=== PATIENT | male | born 1980 | race Caucasian/White ===

== ENCOUNTER 2022-10-20 11:05 | Emergency (ER) | payer MEDICAID ==
[~2022-10-20] VITALS: Ht 182.9 cm; Wt 77.1 kg
[2022-10-20 11:11] VITALS: BP_SYST 124
[2022-10-20 11:15] VITALS: BP_SYST 124
[2022-10-20] MEDS ORDERED: BUPRENORPHINE HCL/NALOXONE HCL 2-0.5 MG 1 EACH TAB.SUBL SL ONE (12:15)
== END 2022-10-20 12:30 ==
LOC: SED 11:05
DX: F11.23 Opioid dependence with withdrawal (principal); F41.9 Anxiety disorder, unspecified; R11.10 Vomiting, unspecified; F17.200 Nicotine dependence, unspecified, uncomplicated; Z88.1 Allergy status to other antibiotic agents; Z79.899 Other long term (current) drug therapy
CPT/HCPCS: 99283